=== PATIENT | male | born 1955 | race Caucasian/White ===

== ENCOUNTER 2024-07-27 09:16 | Outpatient (AMB) | payer MEDICARE, SELFPAY ==
--- NOTE | 2024-07-27 09:15 | A.OFFVIS_ITS ---
Vital Signs 07/27/24 09:19 Height 6 ft 2 in Weight 220 lb BMI 28.2 BP 130/78 Blood Pressure Location Rt brachial Position Sitting Pulse 73 Pulse Source Pulse Oximeter Pulse Oximetry (%) 96 Oxygen Delivery Method Room Air Intake Visit Reasons: ENP-Tardive Dyskinesia Intake Note: patient referred form [facility] for tardive dyskinesia Allergies No Known Allergies Allergy (Verified 07/27/24 09:19) HPI Comments Details: 68y/o Right handed male comes for further management of tardive dyskinesia.He started noticing perioral and tongue movements 2 years ago. He was tried on cogentin and ingrezza. 6 mths ago latuda dose was decreased but his mood worsened and his dose was increased again but he started noticing increased abnormal jaw clicking along with perioral dyskinesias. Now his latuda dose was decreased to 20 mg qd and started on clonazepam which seems to help but the jaw clicking still bothers him [facility] Medical History (Updated 07/27/24 @ 10:44 by Monica Zhu MD) Hyperlipidemia HTN (hypertension) Oromandibular dystonia Anal fissure Tardive dyskinesia Surgical History History of rectal surgery H/O hernia repair H/O rhinoplasty Family History Mother HTN (hypertension) Father Hyperglycemia Social History Alcohol intake: never Patient Tobacco Use Status: Never used Tobacco Physical Exam Vital Signs: Last Vital Signs Pulse 73 07/27/24 09:19 BP 130/78 07/27/24 09:19 Pulse Ox 96 07/27/24 09:19 Oxygen Delivery Method Room Air 07/27/24 09:19 BMI result Body Mass Index 28.2 Const General: cooperative, healthy appearing, comfortable and no acute distress Nutritional Appearance: average body habitus Orientation/consciousness: patient oriented x3 Limitations: no limitations Eyes Pupils: Equal, round and reactive pupils present Neuro Other: perioral , tongue movements and jaw dystonia General: patient oriented x3, gait normal, tone normal, moves all extremities and no focal motor deficits Cranial nerves: Yes Facial sensation intact/muscles of mastication intact, Yes Equal, round and reactive pupils present, Yes Bilaterally intact EOM present, Yes Nystagmus not present, Yes Normal facial strength present, Yes Midline tongue present, Yes Symmetric palate elevation present and Yes Ability to bilaterally elevate shoulders present Cognition (Neuro): normal cognition Gait exam (Neuro): Normal gait present Motor exam (neuro): 5/5 motor strength present throughout and Normal motor mu scle tone present throughout Deep tendon reflexes (DTR's): Right triceps reflex intensity grade: 1+, Left triceps reflex intensity grade: 1+, Rt Biceps (C5, C6): 1+, Left biceps reflex intensity grade: 1+, Right brachioradialis reflex intensity grade: 1+, Left brachioradialis reflex intensity grade: 1+, Right patellar reflex intensity grade: 1+ and Left patellar reflex intensity grade: 1+ Coordination: [id number] test normal Assessment & Plan Assessment & Plan (1) 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 Category: Medical Plan Suggested to increase clonazepam 0.5mg qhs I will trial him on Botox for Jaw dystonia continue ingrezza 80mg qd Coding Level of Care Code New Pt Level 4 (39276) Complex EM visit Add On G2211 Diagnoses Oromandibular dystonia G24.4 AIMS Questionnaire Abnormal Involuntary Movement Scale Muscles or Facial Expressions (movements of forehead, eyebrows, periorbital area, cheeks, including frowning, blinking, smiling, grimacing): 0 - None Lips and Perioral Area (puckering, pouting, smacking): 4 - Severe Jaw (biting, clenching, chewing, mouth opening, lateral movement): 4 - Severe Tongue (rate only increases in movement both in and out of mouth. NOT inability to sustain movement. Darting in and out of mouth): 2 - Mild Upper-arms, wrists, hands, fingers (Include choreic movements; rapid, objectively purposeless, irregular, spontaneous. Athetoid movements; slow, irregular, complex, serpentine. DO NOT INCLUDE TREMOR: 1 - Minimal, may be extreme normal Lower- legs, knees, ankles, toes (lateral knee movement, foot tapping, heel dropping, foot squirming, inversion and eversion of foot: 1 - Minimal, may be extreme normal Neck, shoulders, hips (rocking, twisting, squirming, pelvic gyrations: 0 - None Severity of abnormal movements overall: 3 - Moderate Incapacitation due to abnormal movements: 3 - Moderate Patient's awareness of abnormal movements: Aware, moderate distress Current problems with teeth and/or dentures?: No Are dentures usually worn?: No Edentia?: No AIMS Score: 21
[2024-07-27 09:19] VITALS: BP 130/78; PULSE 73; O2SAT 96; BMI 28.2
--- OUTSIDE RECORDS SUMMARY | 2024-07-27 10:16 | XMS_ITS ---
Author Organization [facility] Address [address] [place] [address] Care Team Providers Care Manager User Experience Name Role Phone NARAYAN MALONE Primary Care Provider [phone] Narayan Malone Unavailable [phone] Allergies Allergen (clinical drug ingredient) Drug/Non Drug Allergy documented on EMR Reaction Allergy Type Onset Date Status Weeds & Grass (uncoded) Unknown Allergy Active Reason For Referral Reason Dr Buck Singh He did in 2018 Due for colonoscopy now Diagnosis 1 Adenomatous polyp of colon, unspecified part of colon (D12.6) Referral Organization [facility] Referring Provider First Name NARAYAN Referring Provider Last Name JESSI Referring Provider Speciality Internal M edicine Referred Provider Specialty Gastroentero logy General Notes Rubi Steen 9:05:06 AM > Buck Tierney Referral Priority Routine REASON FOR VISIT Medicare Wellness Visit:, Last Labs: 10/17/22, Last EK02/05/22 (NEEDED), Last Colonoscopy: 03/31/18 (5 Year Repeat: Dr Tierney: Due This Year), Depression/Tobacco/Alcohol Screening Needed Medications Medication SIG (Take, Route, Frequency, Duration) Notes Start Date End Date Status PARoxetine HCl 40 MG 1 tablet in the morning Orally Once a day Not-Taking ALPRAZolam 0.5 MG 1 tablet Orally Twice a day for 30 12/17/2015 Not-Taking Pravastatin Sodium 40 MG 1 tablet Orally Once a day for 90 days Not-Taking Nystatin 297514 UNIT/GM External for 10 APPLY 2-3 TIMES DAILY TO AFFECTED AREAS 06/01/2014 Not-Taking Medrol 4 MG Oral for 21 USE DIRECTED. 12/25/2014 Not-Taking Hydrocortisone Acetate 30 MG Rectal for 28 _insert 1 SUPPOSITORY RECTALLY TWICE A DAY 05/29/2015 Not-Taking Nystatin [id number] UNIT/GM External for 10 APPLY 2-3 TIMES DAILY TO AFFECTED AREAS 06/01/2014 Not-Taking MiraLax 1 packet mixed with 8 ounces of fluid Orally Once a day Not-Taking Viagra 25 MG 1 tablet as needed Orally Once a day prn Not-Taking PARoxetine HCl 20 MG TAKE 1/2 A TABLET IN THE MORNING FOR 1 WEEK, THEN INCREASE TO 1/2 A TABLET TWICE A DAY for 30 Not-Taking Diclofenac Sodium 75 MG TAKE 1 TABLET BY MOUTH TWICE A DAY WITH FOOD OR MILK for 30 prn Not-Taking Wegovy 0.5 MG/0.5ML 0.5 ml Subcutaneous ONCE A WEEK FOR 4 WEEKS Not-Taking Viagra 25 MG Oral for 0 06/29/2014 Not-T aking Pravastatin Sodium 40 MG Oral for 30 TAKE 1 TABLET EVERY DAY 02/10/2011 Not-Taking Medrol 4 MG Oral for 21 USE DIRECTED. 12/25/2014 Not-Taking buPROPion HCl ER (SR) 200 MG TAKE 1 TABLET BY MOUTH EVERY MORNING Orally for 10 days Not-Taking Abilify 5 MG 1/2 tablet Orally Once a day started by psychiatry Not-Taking LORazepam 0.5 MG TAKE 1 TABLET BY MOUTH TWICE A DAY NEEDED ORALLY 30 DAYS Orally for 30 days 11/18/2022 Active Atorvastatin Calcium 20 MG TAKE 1 TABLET BY MOUTH EVERY DAY for 90 Active Venlafaxine HCl ER 150 MG 2 TABS Orally DAILY Active Multivitamin Adult Orally A ctive Latuda 80 MG 1 tablet in the evening with food Orally Once a day Active Benztropine Mesylate 1 MG 1 tablet Orally Once a day [facility] Active Social History Tobacco Use: Social History Observation Description Date Details (start date - stop date) Former Smoker 05/11/1971 - 05/11/2001 Tobacco Use/Smoking Question Answer Notes Are you a former smoker When did you start smoking? 05/11/1971 When did you stop smoking? 05/11/2001 How long has it been since you last smoked? > 10 years Additional Findings: Tobacco Non-User Current no n-smoker Alcohol Screen (Audit-C) Question Answer Notes Did you have a drink contain ing alcohol in the past year? Yes How often did you have a dri nk containing alcohol in the past year? Never (0 point) How many drinks did you have on a typical day when you were drinking in the past year? 1 or 2 drinks (0 point) How often did you have 6 or more drinks on one occasion in the past year? Never (0 point) Points 0 Interpretation Negative Tobacco use other than smoking: Question Answer Notes Are you an other tobacco user? No Section Notes: 46 years to Gabriella Meehan 65 yr. Stopped working in 2007 after partial colectomy.Spent time with grandchildren at [facility] in [place]. Rest of social situation is fine. 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 Has 2 brothers and 2 sisters. Patient is the oldest. All in good health. Talks and texts them Lives in [facility] One sister in [place] is homemaker. 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 Daughter Corrine is 43 yrs. RN at [employer] as asst nurse arts administrator or manager. Single mother with 2 children BF is Ed Young, together for 16 yrs Enjoys 2 grandchildren Connie 12 yr(shares his Bday with her) and Nicole 10 yrs over weekends.. Son Juan Carlos 45 yrs. 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 HOBBIES: Granddaughters Reads a lot . Puzzles To distract from work which is stressful Teaching himself woodworking Problems Problem Type SNOMED Code ICD Code Onset Dates Problem Status W/U Status Risk Notes Problem [id number] Medicare annual wellness visit, subsequent (Z00.00) Active confirmed 02/18/23 Reviewed MOLST Forms given last visit No changes Has HCP No changes Vital Signs Temperature 98.4 degrees Fahrenheit 02/19/20 23 Blood pressure systolic 128 mm Hg 02/19/20 23 Blood pressure diastolic 68 mm Hg 023 Heart Rate 80 /min 02/18/2023 Height 74 in 02/18/2023 Weight 202 lbs 02/18/2023 BMI 25.93 kg/m2 02/18/2023 Encounters Encounter Location Date Provider Diagnosis [facility] [address] [place] [address] 02/18/2023 NARAYAN MALONE Labile essential hypertension I10 ; Medicare annual wellness visit, subsequent Z00.00 ; Extrapyramidal and movement disorder, 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 ; Erectile disorder due to medical condition in male N52.1 ; Mixed hyperlipidemia E78.2 ; Sleep apnea, unspecified G47.30 ; Post traumatic stress disorder (PTSD) F43.10 ; Chronic recurrent major depressive disorder F33.9 and Adenomatous polyp of colon, unspecified part of colon D12.6 Assessments Encounter Date Diagnosis (ICD Code) Assessment Notes Treatment Notes Treatment Clinical Notes Section Notes 02/18/2023 Labile essential hypertension (ICD-10 - I10) 10/31/20 stable, slightly elevated , pt will lose weight and reevaulate in 3 months 02/18/2023 Medicare annual wellness visit, subsequent (ICD-10 - Z00.00) 02/18/23 Reviewed MOLST Forms given last visit No changes Has HCP No changes 02/18/2023 Extrapyramidal and movement disorder, unspecified (ICD-10 - G25.9) 06/09/22 Mouth movements Started 3 years ago Worse in past 3 months Told to discuss with his psychiatrist Dr Worley 02/18/2023 Erectile disorder due to medical condition in male (ICD-10 - N52.1) 02/03/22 I think this is due to his medications for depression / anxiety Not active for 2 years has lost weight and wants to be active Will give Tadanafil and send him for urologic consult 06/09/22 Saw [facility] She gave him compounded injection Tried once FU imn 10/13/22 Increased the dose to 40 units and it is effective Lasts 10 minutes. 02/18/2023 Mixed hyperlipidemia (ICD-10 - E78.2) Was on Pravastatin Changed to Crestor 20 mg as HDL was low and LDL 115 02/18/2023 Sleep apnea, unspecified (ICD-10 - G47.30) Using CPAP for 15 years Uses it daily 02/18/2023 Post traumatic stress disorder (PTSD) (ICD-10 - F43.10) Gets flash back memory from childhood and he remembered his father was drunk and violent and he called him an asshole. He burst out crying. 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 On Paxil for 4 years Gained weight and had decreased libido. Stopped for 4 months and restarted again when he had relapse. Gained 7 lbs weight since he restarted I switched it to Effexor on 02/08/20 when he had relapse Now doing well and stabilized. 05/22/20- continues medication, stable. continues to speak with Beba Akbar. Advised on exercise 07/23/20- continues to see Beba Akbar, was started on Abilify 2mg due to still having some depressive symptoms, only been 2 weeks, pt not seeing effect yet, was started low to make sure there were no side effects, will see MD again in 2 weeks. 05/24/21 Stopped the venlafaxine and abilify in March Has relapse of his symptoms Will restrt the Venlafaxine 150 mg today FU in a week 06/03/21 Feeling better for past 3 days But still restless Taking also wellbutrin . Was on abilify 5 mg given by Juan Carlos Downing for 2 yrs . 06/17/21 Restarted Abilfy 5 mg a week ago as he felt restless , agitated and depressed Will monitor for weight again and diabetes Already has tremors of both hands 09/04/21 Has an appt with psychiatry 09/16/21 Dr Meir linton 02/18/2023 Adenomatous polyp of colon, unspecified part of colon (ICD-10 - D12.6) 02/17/23 Had sessile tubular polyps [place] [address] Tierney Will need a 5 year repeat Plan Of Treatment Pending Test Test Name Order Date Urinalysis, Complete 02/18/2023 Lipid Panel 02/18/2023 Chem-Comprehensive 02/18/2023 CBC 02/18/2023 PSA, SCREEN 02/18/2023 Referrals Referral Date Details 02/18/2023 02/18/2023, Dr Buck Singh He did in 2018 Due for colonoscopy now Next Appt Details Follow Up: 4 Months, Reason: Progress Notes * Bob SALDANA BDOB: [birth year] (67 yo M)Acc No.[id number]:02/18/2023 Progress Note Patient:?Bob Saldana B Provider:?Narayan Malone MD :[id number]???Age:67 Y???Sex:Male Gus e:02/18/2023 Address:[address] [place] [address], [id number] Subjective: * Chief Complaints: * ???Medicare Wellness Visit:L ast Labs: 10/17/22Last EK02/05/22 (NEEDED)Last Colonoscopy: 03/31/18 (5 Year Repeat: Dr Tierney: Due This Year)Depression/Tobacco/Alcohol Screening Needed * HPI: ???Depression Screening:?PHQ-9?Little interest or pleasure in doing things?Not at all ?Feeling down, depressed, or hopeless?Not at all ?Trouble falling or staying asleep, or sleeping too much?Not at all ?Feeling tired or having little energy?Not at all ?Poor appetite or overeating?Not at all ?Feeling bad about yourself or that you are a failure, or have let yourself or your family down?Not at all ?Trouble concentrating on things, such as reading the newspaper or watching television?Not at all ?Moving or speaking so slowly that other people could have noticed; or the opposite, being so fidgety or restless that you have been moving around a lot more than usual?Not at all ?Thoughts that you would be better off or of hurting yourself in some way?Not at all ?Total Score?0 ???New/Follow-up Patient Consult:? 02/05/22 Here for his initial Medicare Wellness Visit Went over the questioneer Filled out MOLST FOms and discussed HCP. His Gabriella and his daughter are his health care proxy. ?Dr Worley stopped the abilify But after a month he had severe debiltating anxiety and restarted Abilfy 5 mg for a month Gained weight so Dr Worley stopped abilfy and started him on Latuda 20 mg daily on 11/17/21 Has had good result. Still has underlying anxiety but not debiltaing. Went camping with , daughter and g=her partner and2 frand daughters . Went [facility] at [facility], [facility]. Went sneaker mild hiking. Still does 10miles a week walking/hiking. ?Complaining of right ear soreness Hurts when it is windy 3 weeks ?Sildenafil 100mg is no longer effecive Has 20 mg script. Will give cialis 20 mg #90 [employer] . ?Driving to [place] in his 25 feet RV (will tow it with his Jeep Grand Nettie) with his and 2 dogs Will camp for 2 weeks at [facility]. Will keep the RV theere ($100 a month) and will drive home Then go back in May for a month. I told him he should join [facility] and look on internet for [place] hiking and walking groups as he needs to socialize as he is isolated after his long term. ?06/09/22 Came to office. States his mentall health is good on Latuda 80 and Effexor 300 mg . He s constantly moving his lips andpuffing and feels tired Started 3 years ago and now his cheeks gets tired . 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 . Also the sin did not work Saw Urologist in [facility] and she gave hin penile inject trimix (compounded) Tried $150 out of pocket. Tried once Was slightly effective. Joined [employer], Does treadmill and rowing machine and cybex machine Goes with and does Mon to Fri at 11 am. Likes it. Took a seasonal job at [employer] for 3 months To socialize. Has booked 6 camping site for his RV travel this year Wenr 6 times last year and dogs enjoy it. ?10/13/22 Looking well Seems to have lost a lot of weight. Lost 58 lbs over a year Weighs 216 lbs with clothes on today Goal is 205 lbs Attributes to 1800 calories a day and an hour of rowing machine daily at the gym. Did go to [place] twice Invited to play at [employer] Has lunch with a 94 lady he met at [employer]. ?Saw Dr Worley . He gave him Benztripine 1 mg and it is helping a lot with his lip smacking and cheek puffing. David happy as I suggested it to him to be treated. Going to [place] for Camping in November twice ,[place] in 2 weeks , [place] in December and [place] in the [facility] with his daughter and her fiance and 2 grand daughters visit for a few days , [place] on the grill , Planning to go to [place] in [place] for 2 months Taking his Camper in February and Park it there for winter $100 a month. ?Gets together at sisters kenvir in [facility] and his 2 brothers and sister from [place] and their children all get together and meet at her house. 30-40 people. ?02/18/23 MEDICARE WELLNESS VISIT: ?Seen in office Moving his mouth constantly. (Tardive Dyskinesia) Worse in morning. Sees Dr Worley every 3 months and now 6 months. No change in meds. On Benzotropine from him. On Latuda and Venlafaxine, Atorvastatin and Benzotropine . No new labs. Lost more weight. Weighs 202 lbs Goal is 194 lbs. ?Went camping 7 times this year, a week each. Going with [place] in February with Will leave his camper there and come back after two weeks and go back in May and stay for 2 months. Stress has been better Doing a lot of fishing at [place] and hiking at [employer] alone. Had colon polyps at last colonocopy. * ROS:?General/Constitutional:?Denies?Change in appetite.?Denies?Chills.?Denies?Fatigue.?Denies?Fever.?Denies?Headache.?Denies?L ightheadedness.?Admits?Sleep disturbance.?Denies?Weight gain.?Denies?Weight loss.?Respiratory:?Denies?Asthma,?denies, denies.?Denies?Breathing pattern.?Denies?Breathing problems,?denies, denies.?Denies?Chest pain.?Denies?Cough.?Denies?Hemoptysis.?Denies?Pain with inspiration.?Denies?Pneumonia,?denies, denies.?Denies?Shortness of breath,?denies, denies.?Denies?Shortness of breath at rest.?Denies?Shortness of breath with exertion.?Denies?Sputum production.?Denies?Tuberculosis,?denies, denies.?Denies?Wheezing.?Cardiovascular:?Denies?Chest pain.?Denies?Chest pain at rest.?Denies?Chest pain with exertion.?Denies?Claudication.?Denies?Cyanosis.?Denies?Difficulty laying flat.?Denies?Dizziness.?Denies?Dyspnea on exertion.?Denies?Fluid accumulation in the legs.?Denies?Heart murmur,?denies, denies.?Denies?Heart problems,?denies, denies.?Denies?High blood pressure,?denies, denies.?Denies?Irregular heartbeat,?denies, denies.?Denies?Orthopnea.?Denies?Palpitations,?denies, denies.?Denies?Rheumatic fever,?denies, denies.?Denies?Shortness of breath.?Denies?Weakness.?Denies?Weight gain.?Psychiatric:?Admits?Anxiety.?Denies?Auditory/visual hallucinations.?Denies?Delusions.?Admits?Depressed mood.?Admits?Difficulty sleeping.?Denies?Eating disorder.?Loss of appetite?Admits.?Denies?Mental or Physical abuse.?Denies?Nervous breakdown,?denies.?Admits?Psychiatric condition,?denies.?Denies?Stressors.?Denies?Substance abuse.?Denies?Suicidal thoughts.? * Medical History:? * Surgical History:?Shoulder S urgery Right Impingement syndrome Dr Begum 2005Tonsillectomy [facility] Age 7Deviated Nasal Septum Dr Leonila Alves(with Dr Villalpando) 2014Left foot surgery 1998Anal fissure repair Dr Avila 2015 * Hospitalization/Major Diagno stic Procedure:? * Family History:?FamilyHx: Ino dai history of cancer;Father At Age ____;Family history of chronic obstructive pulmonary disease;.? 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 Mother Vinita Both remarried at age 74 yr from CHF Smoker and drinker. Has 2 brothers and 2 sisters. Keeps in touch 3 live in [facility] and one in [place].Meets couple of times once in summer and ashley(takes turns) Dysfunctional childhood. * Social History:?Tobacco Use:?Tobacco Use/Smoking?Are you a?former smoker ?When did you start smoking??05/11/1971 ?When did you stop smoking??05/11/2001 ?How long has it been since you last smoked??> 10 years ?Additional Findings: Tobacco Non-User?Current non-smoker ?Tobacco use other than smoking?Are you an other tobacco user??No ???Social_Migrated:?SocialHx: Former smokerMarital History - Currently . ???Drugs/Alcohol:?Alcohol Screen (Audit-C)?Did you have a drink containing alcohol in the past year??Yes ?How often did you have a drink containing alcohol in the past year??Never (0 point) ?How many drinks did you have on a typical day when you were drinking in the past year??1 or 2 drinks (0 point) ?How often did you have 6 or more drinks on one occasion in the past year??Never (0 point) ?Points?0 ?Interpretation?Negative ?Do you smoke marijuana?: Admits. ?Do you drink alcohol?: none. ??? 46 years to Gabriella Meehan 65 yr. Stopped working in 2007 after partial colectomy.Spent time with grandchildren at [facility] in [place] and [place]. Rest of social situation is fine. 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 Has 2 brothers and 2 sisters. Patient is the oldest. All in good health. Talks and texts them Lives in [facility] One sister in [place] is homemaker. 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 Daughter Corrine is 43 yrs. RN at [employer] as asst nurse arts administrator or manager. Single mother with 2 children BF is Ed Young, together for 16 yrs Enjoys 2 grandchildren Connie 12 yr(shares his Bday with her) and Nicole 10 yrs over weekends.. Son Juan Carlos 45 yrs. 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 HOBBIES: Granddaughters Reads a lot . Puzzles To distract from work which is stressful Teaching himself woodworking. * Medications:?TakingBenztropi ne Mesylate 1 MG Tablet 1 tablet Orally Once a day, Notes: QHSLatuda 80 MG Tablet 1 tablet in the evening with food Orally Once a dayMultivitamin Adult Tablet Orally Venlafaxine HCl ER 150 MG Capsule Extended Release 24 Hour 2 TABS Orally DAILYAtorvastatin Calcium 20 MG Tablet TAKE 1 TABLET BY MOUTH EVERY DAY LORazepam 0.5 MG Tablet TAKE 1 TABLET BY MOUTH TWICE A DAY NEEDED ORALLY 30 DAYS Orally Taking Benztropine Mesylate 1 MG Tablet 1 tablet Orally Once a day, Notes: QHSTaking Latuda 80 MG Tablet 1 tablet in the evening with food Orally Once a dayTaking Multivitamin Adult Tablet Orally Taking Venlafaxine HCl ER 150 MG Capsule Extended Release 24 Hour 2 TABS Orally DAILYTaking Atorvastatin Calcium 20 MG Tablet TAKE 1 TABLET BY MOUTH EVERY DAY Taking LORazepam 0.5 MG Tablet TAKE 1 TABLET BY MOUTH TWICE A DAY NEEDED ORALLY 30 DAYS Orally Not-TakingAbilify 5 MG Tablet 1/2 tablet Orally Once a day, Notes: started by psychiatrybuPROPion HCl ER (SR) 200 MG Tablet Extended Release 12 Hour TAKE 1 TABLET BY MOUTH EVERY MORNING Orally Wegovy 0.5 MG/0.5ML Solution Auto-injector 0.5 ml Subcutaneous ONCE A WEEK FOR 4 WEEKSDiclofenac Sodium 75 MG Tablet Delayed Release TAKE 1 TABLET BY MOUTH TWICE A DAY WITH FOOD OR MILK , Notes: prnMedrol 4 MG TABS Oral , Notes: USE DIRECTED.Pravastatin Sodium 40 MG TABS Oral , Notes: TAKE 1 TABLET EVERY DAYViagra 25 MG TABS Oral PARoxetine HCl 20 MG Tablet TAKE 1/2 A TABLET IN THE MORNING FOR 1 WEEK, THEN INCREASE TO 1/2 A TABLET TWICE A DAY Viagra 25 MG Tablet 1 tablet as needed Orally Once a day prnMiraLax Packet 1 packet mixed with 8 ounces of fluid Orally Once a dayNystatin [id number] UNIT/GM OINT External , Notes: APPLY 2-3 TIMES DAILY TO AFFECTED AREASHydrocortisone Acetate 30 MG SUPP Rectal , Notes: _insert 1 SUPPOSITORY RECTALLY TWICE A DAYALPRAZolam 0.5 MG Tablet 1 tablet Orally Twice a dayPARoxetine HCl 40 MG Tablet 1 tablet in the morning Orally Once a dayMedrol 4 MG TABS Oral , Notes: USE DIRECTED.Nystatin [id number] UNIT/GM OINT External , Notes: APPLY 2-3 TIMES DAILY TO AFFECTED AREASPravastatin Sodium 40 MG Tablet 1 tablet Orally Once a dayMedication List reviewed and reconciled with the patientNot-Taking Abilify 5 MG Tablet 1/2 tablet Orally Once a day, Notes: started by psychiatryNot-Taking buPROPion HCl ER (SR) 200 MG Tablet Extended Release 12 Hour TAKE 1 TABLET BY MOUTH EVERY MORNING Orally Not-Taking Wegovy 0.5 MG/0.5ML Solution Auto-injector 0.5 ml Subcutaneous ONCE A WEEK FOR 4 WEEKSNot-Taking Diclofenac Sodium 75 MG Tablet Delayed Release TAKE 1 TABLET BY MOUTH TWICE A DAY WITH FOOD OR MILK , Notes: prnNot-Taking Medrol 4 MG TABS Oral , Notes: USE DIRECTED.Not-Taking Pravastatin Sodium 40 MG TABS Oral , Notes: TAKE 1 TABLET EVERY DAYNot-Taking Viagra 25 MG TABS Oral Not-Taking PARoxetine HCl 20 MG Tablet TAKE 1/2 A TABLET IN THE MORNING FOR 1 WEEK, THEN INCREASE TO 1/2 A TABLET TWICE A DAY Not-Taking Viagra 25 MG Tablet 1 tablet as needed Orally Once a day prnNot-Taking MiraLax Packet 1 packet mixed with 8 ounces of fluid Orally Once a dayNot-Taking Nystatin [id number] UNIT/GM OINT External , Notes: APPLY 2-3 TIMES DAILY TO AFFECTED AREASNot-Taking Hydrocortisone Acetate 30 MG SUPP Rectal , Notes: _insert 1 SUPPOSITORY RECTALLY TWICE A DAYNot-Taking ALPRAZolam 0.5 MG Tablet 1 tablet Orally Twice a dayNot-Taking PARoxetine HCl 40 MG Tablet 1 tablet in the morning Orally Once a dayNot-Taking Medrol 4 MG TABS Oral , Notes: USE DIRECTED.Not-Taking Nystatin [id number] UNIT/GM OINT External , Notes: APPLY 2-3 TIMES DAILY TO AFFECTED AREASNot-Taking Pravastatin Sodium 40 MG Tablet 1 tablet Orally Once a dayMedication List reviewed and reconciled with the patient * Allergies:?Weeds & Grass: Jeremy naylor[Allergies Verified] Objective: * Vitals:?Temp: 98.4 F, HR: 80 /min, BP: 128/68 mm Hg, Wt: 202 lbs, BMI:25.93 Index, Ht: 74 in, Wt-k.63 kg. * ???Past Orders: Lab:CBC * Order Date 10/13/2022 07/04/2021 01/31/2021 HEMATOCRIT 42.7 (Ref Range: 42-54 %) 43.6 (Ref Range: 42-54 %) 44.2 (Ref Range: 42-54 %) HEMOGLOBIN 13.5 (Ref Range: 13.5-17.5 g/dL) 14.3 (Ref Range: 13.5-17.5 g/dL) 14.8 (Ref Range: 13.5-17.5 g/dL) MCH 28.8 (Ref Range: 27-32 pg) 28.8 (Ref Range: 27-32 pg) 30.3 (Ref Range: 27-32 pg) MCHC 31.6?L (Ref Range: 32-37 g/dL) 32.8 (Ref Range: 32-37 g/dL) 33.5 (Ref Range: 32-37 g/dL) MCV 91.0 (Ref Range: 79-98 fL) 87.9 (Ref Range: 79-98 fL) 90.6 (Ref Range: 79-98 fL) MEAN PLATELET VOLUME 10.0 (Ref Range: 7-11 fL) 9.7 (Ref Range: 7-11 fL) 9.1 (Ref Range: 7-11 fL) NRBC # AUTO DIFF 0.00 (Ref Range: <0.1 x10-3/uL) 0.00 (Ref Range: <0.1 x10-3/uL) 0.00 (Ref Range: <0.1 x10-3/uL) NRBC % AUTO DIFF 0.0 (Ref Range: <1 %) 0.0 (Ref Range: <1 %) 0.0 (Ref Range: <1 %) PLT COUNT 302 (Ref Range: 130-400 x10-3/uL) 315 (Ref Range: 130-400 x10-3/uL) 310 (Ref Range: 130-400 x10-3/uL) RBC 4.7 (Ref Range: 4.5-5.5 x10-6/uL) 5.0 (Ref Range: 4.5-5.5 x10-6/uL) 4.9 (Ref Range: 4.5-5.5 x10-6/uL) RDW 12.8 (Ref Range: 11-15 %) 12.9 (Ref Range: 11-15 %) 13.0 (Ref Range: 11-15 %) WBC 5.2 (Ref Range: 4.8-10.8 x10-3/uL) 5.9 (Ref Range: 4.8-10.8 x10-3/uL) 7.8 (Ref Range: 4.8-10.8 x10-3/uL) * Lab:COMPREHENSIVE METABOLIC PANEL * Order Date 10/17/2022 02/05/2022 07/04/2021 ALBUMIN 4.0 (Ref Range: 3.2-5.0 G/dL) 4.0 (Ref Range: 3.2-5.0 G/dL) 4.0 (Ref Range: 3.2-5.0 G/dL) ALK PHOS 74 (Ref Range: 42-121 U/L) 76 (Ref Range: 42-121 U/L) 88 (Ref Range: 42-121 U/L) SGPT 36 (Ref Range: 10-60 U/L) 40 (Ref Range: 10-60 U/L) 31 (Ref Range: 10-60 U/L) ANION GAP 8 (Ref Range: 3-11) 7 (Ref Range: 3-11) 5 (Ref Range: 3-11) SGOT 27 (Ref Range: 10-42 U/L) 32 (Ref Range: 10-42 U/L) 26 (Ref Range: 10-42 U/L) BILI,TOTAL 0.6 (Ref Range: 0.0-1.4 mg/dL) 0.8 (Ref Range: 0.0-1.4 mg/dL) 0.6 (Ref Range: 0.0-1.4 mg/dL) BUN 12 (Ref Range: 5-25 mg/dL) 12 (Ref Range: 5-25 mg/dL) 11 (Ref Range: 5-25 mg/dL) CALCIUM 9.4 (Ref Range: 8.5-10.5 mg/dL) 9.7 (Ref Range: 8.5-10.5 mg/dL) 9.6 (Ref Range: 8.5-10.5 mg/dL) CHLORIDE 105 (Ref Range: 96-110 mmol/L) 106 (Ref Range: 96-110 mmol/L) 104 (Ref Range: 96-110 mmol/L) CO2 28 (Ref Range: 21-32 mmol/L) 30 (Ref Range: 21-32 mmol/L) 29 (Ref Range: 21-32 mmol/L) CREAT 1.02 (Ref Range: 0.7-1.3 mg/dL) 1.00 (Ref Range: 0.7-1.3 mg/dL) 1.07 (Ref Range: 0.7-1.3 mg/dL) GLOMERULAR FILTRATION RATE 82 (Ref Range: >60) > 60 > 60 GLUCOSE 93 (Ref Range: 70-100 mg/dL) 78 (Ref Range: 70-100 mg/dL) 79 (Ref Range: 70-100 mg/dL) POTASSIUM 4.3 (Ref Range: 3.5-5.5 mmol/L) 4.1 (Ref Range: 3.5-5.5 mmol/L) 4.7 (Ref Range: 3.5-5.5 mmol/L) SODIUM 141 (Ref Range: 135-145 mEq/L) 143 (Ref Range: 135-145 mEq/L) 138 (Ref Range: 135-145 mEq/L) TOTAL PROTEIN 7.1 (Ref Range: 6.0-8.0 G/dL) 7.1 (Ref Range: 6.0-8.0 G/dL) 7.3 (Ref Range: 6.0-8.0 G/dL) * Lab:LIPID PROFILE * Order Date 10/17/2022 02/05/2022 01/31/2021 CHOLESTEROL 125 (Ref Range: 0-200 mg/dL) 132 (Ref Range: 0-200 mg/dL) 187 (Ref Range: 0-200 mg/dL) HDL CHOLESTEROL 46 (Ref Range: >40 mg/dL) 42 (Ref Range: >40 mg/dL) 38?L (Ref Range: >40 mg/dL) LDL CALCULATED 67 (Ref Range: 0-100 mg/dL) 66 (Ref Range: 0-100 mg/dL) 73 (Ref Range: 0-100 mg/dL) TC-HDLC RATIO 2.7 (Ref Range: 0-4.4 mg/dL) 3.1 (Ref Range: 0-4.4 mg/dL) 4.9?H (Ref Range: 0-4.4 mg/dL) TRIGLYCERIDES 64 (Ref Range: 0-150 mg/dL) 122 (Ref Range: 0-150 mg/dL) 383?H (Ref Range: 0-150 mg/dL) * Lab:URINALYSIS * Order Date 10/17/2022 02/05/2022 03/12/2020 BILIRUBIN, URINE NEGATIVE (Ref Range: NEGATIVE) NEGATIVE (Ref Range: NEGATIVE) NEGATIVE (Ref Range: NEGATIVE) BLOOD, URINE NEGATIVE (Ref Range: NEGATIVE) NEGATIVE (Ref Range: NEGATIVE) NEGATIVE (Ref Range: NEGATIVE) GLUCOSE, (UA) NEGATIVE (Ref Range: NEGATIVE mg/dL) NEGATIVE (Ref Range: NEGATIVE mg/dL) NEGATIVE (Ref Range: NEGATIVE mg/dL) KETONE, URINE NEGATIVE (Ref Range: NEGATIVE mg/dL) NEGATIVE (Ref Range: NEGATIVE mg/dL) NEGATIVE (Ref Range: NEGATIVE mg/dL) LEUKOCYTE ESTERASE, URINE NEGATIVE (Ref Range: NEGATIVE) NEGATIVE (Ref Range: NEGATIVE) NEGATIVE (Ref Range: NEGATIVE) NITRITE, URINE NEGATIVE (Ref Range: NEGATIVE) NEGATIVE (Ref Range: NEGATIVE) NEGATIVE (Ref Range: NEGATIVE) PH, URINE 7.5 (Ref Range: 5.0-8.0) 5.5 (Ref Range: 5.0-8.0) 7.0 (Ref Range: 5.0-8.0) PROTEIN, URINE NEGATIVE (Ref Range: <= TRACE mg/dl) NEGATIVE (Ref Range: <= TRACE mg/dl) NEGATIVE (Ref Range: <= TRACE mg/dl) SPECIFIC GRAVITY, URINE 1.004 (Ref Range: 1.003-1.030) 1.017 (Ref Range: 1.003-1.030) 1.012 (Ref Range: 1.003-1.030) UROBILINOGEN, URINE 0.2 (Ref Range: 0.2-1.0 E.U./dL) 0.2 (Ref Range: 0.2-1.0 E.U./dL) 0.2 (Ref Range: 0.2-1.0 E.U./dL) * Examination: ???General Examination: ?GENERAL APPEARANCE:?Walking slow Looking apprehensive and agitated. Dress look dishevelled and unkempt. Sad expression.?HEAD:?normocephalic, atraumatic.?EYES:?pupils equal, round, reactive to light and accommodation.?EARS:?normal.?ORAL CAVITY:?mucosa moist.?THROAT:?clear.?NECK/THYROID:?neck supple, full range of motion, no cervical lymphadenopathy.?SKIN:?no suspicious lesions, warm and dry.?HEART:?no murmurs, regular rate and rhythm, S1, S2 normal.?LUNGS:?clear to auscultation bilaterally.?ABDOMEN:?normal, bowel sounds present, soft, nontender, nondistended.?EXTREMITIES:?no clubbing, cyanosis, or edema.?NEUROLOGIC:?nonfocal, motor strength normal upper and lower extremities, sensory exam intact.? 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, 06/09/22 Mouth movements Started 3 years ago Worse in past 3 months Told to discuss with his psychiatrist Dr Worley?4.?Erectile disorder due to medical condition in male - N52.1, 02/03/22 I think this is due to his medications for depression / anxiety Not active for 2 years has lost weight and wants to be active Will give Tadanafil and send him for urologic consult 06/09/22 Saw [facility] She gave him compounded injection Tried once FU imn 10/13/22 Increased the dose to 40 units and it is effective Lasts 10 minutes.?5.?Mixed hyperlipidemia - E78.2, Was on Pravastatin Changed to Crestor 20 mg as HDL was low and LDL 115?6.?Sleep apnea, unspecified - G47.30, Using CPAP for 15 years Uses it daily?7.?Post traumatic stress disorder (PTSD) - F43.10, Gets flash back memory from childhood and he remembered his father was drunk and violent and he called him an asshole. He burst out crying. 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 On Paxil for 4 years Gained weight and had decreased libido. Stopped for 4 months and restarted again when he had relapse. Gained 7 lbs weight since he restarted I switched it to Effexor on 02/08/20 when he had relapse Now doing well and stabilized. 05/22/20- continues medication, stable. continues to speak with Beba Akbar. Advised on exercise07/23/20- continues to see Beba Akbar, was started on Abilify 2mg due to still having some depressive symptoms, only been 2 weeks, pt not seeing effect yet, was started low to make sure there were no side effects, will see MD again in 2 weeks. 05/24/21 Stopped the venlafaxine and abilify in March Has relapse of his symptoms Will restrt the Venlafaxine 150 mg today FU in a week 06/03/21 Feeling better for past 3 days But still restless Taking also wellbutrin . Was on abilify 5 mg given by Juan Carlos Downing for 2 yrs . 06/17/21 Restarted Abilfy 5 mg a week ago as he felt restless , agitated and depressed Will monitor for weight again and diabetes Already has tremors of both hands09/04/21 Has an appt with psychiatry 09/16/21 Dr Worley [place]?9.?Adenomatous polyp of colon, unspecified part of colon - D12.6, 02/17/23 Had sessile tubular polyps [place] [address] Tierney Will need a 5 year repeat? Plan: * Treatment: 2.?Labile essential hyperten igor?LAB: Urinalysis, Complete ?LAB: Lipid Panel ?LAB: Chem-Comprehensive ?LAB: CBC 3.?Adenomatous polyp of colo n, unspecified part of colon? Referral To:Gastroenterology ?Reason:Dr Buck Singh He did in 2018 Due for colonoscopy now * Procedure Codes:? * Follow Up:?4 Months * Billing Information: * Visit Code:? G0439 Annual Wellness Visit AWV. 46909 [facility] Subsequent. G0444 Add-on AWV w/ Depression. Modifiers: 59 * Procedure Codes:? Care Plan Details* * Sign off status: Completed true * Provider:?Narayan Malone MD Date:?2022 Generated for Bird tracey/Armani/eTransmitting on:?07/27/2024 10:15 AM EDT History and Physical Notes * HPI (History of Present Illness) Category Sub-Category Detail Notes Category Not es Depression Screening PHQ-9 Little inte rest or pleasure in doing things: Not at all Feeling down, depressed, or hopeless: No t at all Trouble falling or staying asleep, or sl eeping too much: Not at all Feeling tired or having little energy: N ot at all Poor appetite or overeating: Not at all Feeling bad about yourself o r that you are a failure, or have let yourself or your family down: Not at all Trouble concentrating on thi ngs, such as reading the newspaper or watching television: Not at all Moving or speaking so slowly that other people could have noticed; or the opposite, being so fidgety or restless that you have been moving around a lot more than usual: Not at all Thoughts that you would be b kareen off or of hurting yourself in some way: Not at all Total Score: 0 Examination Category Sub-Category Detail Notes Category Not es General Examination GENERAL APPEARANCE: Walking slow Looking apprehensive and agitated. Dress look dishevelled and unkempt. Sad expression HEAD: normocephalic, atrau matic EYES: pupils equal, round, reactive to light and accommodation EARS: normal THROAT: clear NECK/THYROID: neck supple, full ra nge of motion, no cervical lymphadenopathy HEART: no murmurs, regular rate and rhythm, S1, S2 normal LUNGS: clear to auscultatio n bilaterally ABDOMEN: normal, bowel sounds present, soft, nontender, nondistended NEUROLOGIC: nonfocal, motor stre ngth normal upper and lower extremities, sensory exam intact SKIN: no suspicious lesion s, warm and dry EXTREMITIES: no clubbing, cyanosi s, or edema ORAL CAVITY: mucosa moist Consultation Request Notes Referral Date Referring Provider Referred Provider Not es 02/18/[address] Barry Slit zki He did in 2018 Due for colonoscopy now
--- OUTSIDE RECORDS SUMMARY | 2024-07-27 10:16 | XMS_ITS | Data Portability ---
Author Organization [place] - [facility], Allergy Address [address] [place] [address] Care Team Providers Care Family Law Attorney Name Role Phone JESSIDAO Primary Care Provider [phone] Assessment Encounter Date Assessment Date Assessment LastModified by Organization Details LastModified Time 06/28/2024 06/28/2024 68 year old male presents reporting left ear pressure having had many courses of antibiotics for left ear infection in the past two months. TMs intact and middle ear spaces appear well aerated without effusion. Type C tympanometry bilaterally. Audiometric testing is stable showing mild sensorineural hearing loss on the right through 6 kHz sloping to moderately severe. On the left hearing is within normal limits through 6 kHz sloping to moderate sensorineural hearing loss. Excellent word recognition bilaterally. Reassurance provided that there is no fluid or sign of infection. Recommend continued use of Flonase and discussed that pressure will likely normalize in time. Follow up in 3 months with repeat tympanometry at that visit. If his symptoms persist he may benefit from CT sinus. [email or web address] Not available 06/28/2024 18:32:01 Plan of Treatment Reminders Order Date Submit Date Provider Last Modified By Organization Details Last Modified Time Details Appointments Hearing Test 2024 03:00P M Hearing Test Not available Not available Not available Establish ed 15 2024 03:30P M MARC LIMA PA-C Not available Not available Not available Lab None recorded. Referral None recorded. Procedures None recorded. Surgeries None recorded. Imaging None recorded. Medication Orders None recorded. Patient TargetsNo targets recorded. Patient InstructionsNo instructions recorded. Reason for Referral None Reported. Results Created Date Observation Date Name Description Value Unit Range Abnormal Flag Note LastModifiedBy Organization Detail LastModifiedTime 06/29/19 25 audio gram No observ ation record ed. BARCODE Not Available 2024 09:48:10 Result Notes None recorded. Problems Name Problem SNOMED Code Status Onset Date Resolution Date Notes Provider Name and Address Organization Details Recorded Time Infectiv e otitis externa 33545919 Completed 201312/11/2023 Otitis externa; infectiv e; CMS Risk: low risk CMS Treatmen t: establis hed problem (to examiner ): stable or improved Note: Date Diagnose d: 4 3:20 PM (380.10) Otitis externa; infectiv e; CMS Risk: low risk CMS Treatmen t: establis hed problem (to examiner ): stable or improved Note: Date Diagnose d: 4 3:23 PM (380.10) Not Available [facility] 4 02:14:05 Other nasal cavity and sinus disease Active 2013 Other diseases of upper respirat ory tract: Other disease of nasal cavity and sinuses; CMS Risk: low risk CMS Treatmen t: establis hed problem (to examiner ): stable or improved Note: Date Diagnose d: 4 9:45 AM (478.19) Not Available [facility] 4 02:13:41 Hypertro phy of nasal turbinat es 39402617 Active 2013 Nasal turbinat e hypertro phy; CMS Risk: low risk CMS Treatmen t: establis hed problem (to examiner ): stable or improved Note: Date Diagnose d: 4 9:45 AM (478.0) Not Available [facility] 4 02:16:18 Chronic rhinitis 47467252 Active 2020 Chronic rhinitis ; Note: Date Diagnose d: 1 1:16 PM (J31.0) Not Available [facility] 4 02:14:14 Bilatera l disorder of Eustachi an tubes 19541490820 45690 Active 2022 Other specifie d disorder s of Eustachi an tube, bilatera l; Note: Date Diagnose d: 02/19/20 23 2:06 PM (H69.83) Not Available [facility] 4 02:13:42 Obstruct alvarado sleep apnea syndrome 84536858 Active 2020 Obstruct alvarado sleep apnea (adult) (pediatr ic); Note: Date Diagnose d: 1 1:16 PM (G47.33) Not [facility] 4 02:15:32 Acute suppurat alvarado otitis media without spontane ous rupture of ear drum 91040423 Active 2022 Acute suppurat alvarado otitis media without spontane ous rupture of ear drum, bilatera l; Note: Date Diagnose d: 3 4:39 PM (H66.003 ) Not Available [facility] 4 02:16:18 Bilatera l external auditory canal chronic otitis externa 01743932811 Active 2020 Unspecif ied chronic otitis externa, bilatera l; Note: Date Diagnose d: 1 1:16 PM (H60.63) Not Available [facility] 4 02:14:14 Acute serous otitis media of bilatera l ears 41980199425 93284 Active 2022 Acute serous otitis media, bilatera l; Note: Date Diagnose d: 3 2:03 PM (H65.03) Not Available [facility] 4 02:14:10 Postoper ative follow-u p visit Active 2013 Post op; CMS Risk: low risk CMS Treatmen t: establis hed problem (to examiner ): stable or improved Note: Date Diagnose d: 4 9:45 AM (V67.00) Post op; CMS Risk: low risk CMS Treatmen t: establis hed problem (to examiner ): stable or improved Note: Date Diagnose d: 5 10:16 AM (V67.00) Not Available [facility] 4 02:13:56 Allergic rhinitis 62488055 Active 2020 Other allergic rhinitis ; Note: Date Diagnose d: 1 10:31 AM (J30.89) Not Available [facility] 4 02:13:18 Deviated nasal septum 081507725 Active 2013 Deviated nasal septum; CMS Risk: low risk CMS Treatmen t: establis hed problem (to examiner ): stable or improved Note: Date Diagnose d: 4 9:45 AM (470) Not Available [facility] 4 02:12:47 Abnormal auditory percepti on 50686452 Active 2022 Other abnormal auditory percepti ons, bilatera l; Note: Date Diagnose d: 02/19/20 23 2:06 PM (H93.293 ) Not Available [facility] 4 02:15:59 Impacted cerumen of bilatera l ears 65974027694 13434 Active 2022 Impacted cerumen, bilatera l; Note: Date Diagnose d: 3 11:48 AM (H61.23) Not Available [facility] 4 02:14:05 Impacted cerumen 45348602 Completed 201412/11/2023 Impacted cerumen; CMS Risk: low risk CMS Treatmen t: new problem (to examiner ): no addition al workup planned Impacte d cerumen; CMS Risk: low risk CMS Treatmen t: new problem (to examiner ): no addition al workup planned Note: Date Diagnose d: 4 3:20 PM (380.4) Impact ed cerumen; CMS Risk: low risk CMS Treatmen t: establis hed problem (to examiner ): stable or improved ; Start Date : 02/14/20 14 Impac colton cerumen; CMS Risk: low risk CMS Treatmen t: establis hed problem (to examiner ): stable or improved Note: Date Diagnose d: 4 3:20 PM (380.4) ; Start Date : 02/14/20 14 Not Available [facility] 4 02:13:35 Sensorin eural hearing loss of bilatera l ears 909736592 Active 2024 Isabelle barrios MA - [facility] 5 15:55:58 Problem Notes None recorded. Procedures Surgical History Date Name Laterality Status Provider Name and Address Organization Details Recorded Time 06/28/2024 Air & Speech Audio with Tymps (09879, 91954 & 32495) completed Isabelle Babb MA - [facility] 06/28/2024 15:55:53 Imaging Results Imaging Date Name Status [facility] by [facility] Details LastModified Time 06/29/2024 audiogram completed BARCODE Information no t available 06/29/2024 09:48:10 Procedure Notes None recorded. Medical Equipment None Reported. Allergies No known drug allergies Medications Name Sig Start Date Stop Date Status Note LastModified by Organization Details LastModified Time Prescript ion - New 06/28 completed Rx^Rx_20 [id number] Not Available Not Available Not Available doxycycli ne hyclate 100 mg capsule TAKE 1 CAPSULE BY MOUTH TWICE A DAY FOR 10 DAYS 06/28 completed Not Available Not Available Not Available atorvasta tin 20 mg tablet TAKE 1 TABLET BY MOUTH EVERY DAY active Not Available Not Available No t Available cetirizin e 10 mg tablet TAKE 1 TABLET BY MOUTH EVERY DAY active Not Available Not Available No t Available prednison e 20 mg tablet TAKE 2 TABLETS BY MOUTH DAILY FOR 5 DAYS 06/28 completed Not Available Not Available Not Available clonazepa m 0.5 mg tablet TAKE 1 TABLET BY MOUTH 2 TIMES PER DAY NEEDED ONLY active Not Available Not Available No t Available venlafaxi ne ER 150 mg capsule,e xtended release 24 hr TAKE 2 CAPSULES (300 MG) BY MOUTH DAILY AFTER BREAKFAS T active Not Available Not Available No t Available baclofen 20 mg tablet TAKE 1 TABLET BY MOUTH THREE TIMES A DAY active Not Available Not Available No t Available pravastat in 10 mg tablet 10/22 completed Medicati on ID: [id number] Bra nd Name: pravasta tin Send Method: E-Prescr ibed Sub s Allowed: subs OK Medic ationGen ericName : pravasta tin Not Available Not Available Not Available baclofen 10 mg tablet TAKE 1 TABLET BY MOUTH TWICE A DAY 06/28 completed Not Available Not Available Not Available amlodipin e 10 mg tablet TAKE 1 TABLET BY MOUTH EVERY DAY active Not Available Not Available No t Available Xanax 0.25 mg tablet 10/22 completed Medicati on ID: [id number] Bra nd Name: Xanax Se nd Method: E-Prescr ibed Sub s Allowed: subs OK Medic ationGen ericName : Xanax Not Available Not Available Not Available benztropi ne 1 mg tablet TAKE 1 TABLET BY MOUTH AT BEDTIME active Not Available Not Available No t Available clotrimaz ole 1 % topical solution 06/28 completed Medicati on ID: [id number] D uration Value: 14 Prescri bed By Name: Lizbunny MeyersMISSY viramontes nd Name: roxy roca Sen d Method: E-Prescr ibed Sub s Allowed: subs OK Speci al Instruct ion: 5 drops to both ears two times a day X 14 days Med icationG enericNa me: clotrima zole Not Available Not Available Not Available metoprolo l succinate ER 25 mg tablet,ex tended release 24 hr TAKE 1 TABLET BY MOUTH EVERY DAY 06/28 completed Not Available Not Available Not Available lorazepam 1 mg tablet TAKE 1 TABLET BY MOUTH 2 TIMES A DAY, NEEDED FOR JAW MUSCLE SPASMS 06/28 completed Not Available Not Available Not Available epinephri ne 0.3 mg/0.3 mL injection , auto-inje ctor 1 pen injector 2020 active Medicati on ID: [id number] D uration Value: 1 Prescri bed By Name: Janett Bhakta nd Name: epinephr ine Send Method: E-Prescr ibed Sub s Allowed: subs OK Medic ationGen ericName : epinephr ine Not Available Not Available Not Available ibuprofen 600 mg tablet TAKE 1 TABLET BY MOUTH EVERY 6 HOURS NEEDED FOR PAIN active Not Available Not Available No t Available sertralin e 20 mg/mL oral concentra te 10/22 completed Medicati on ID: [id number] Sarwat schwartz Name: sertrali ne Send Method: E-Prescr ibed Sub s Allowed: subs OK Medic ationGen ericName : sertrali ne Not Available Not Available Not Available ondansetr on 4 mg disintegr ating tablet DISSOLVE 1 TABLET BY MOUTH UNDER TONGUE EVERY 8 HOURS NEEDED FOR NAUSEA/V OMITING. 06/28 completed Not Available Not Available Not Available cefdinir 300 mg capsule TAKE 1 CAPSULE BY MOUTH EVERY 12 HOURS FOR 10 DAYS 06/28 completed Not Available Not Available Not Available fluticaso ne propionat e 50 mcg/actua tion nasal spray,lu pension SPRAY 2 SPRAYS INTRANAS ALLY DAILY active Not Available Not Available No t Available doxycycli ne hyclate 100 mg tablet TAKE 1 TABLET BY MOUTH EVERY 12 HOURS FOR 5 DAYS 06/28 completed Not Available Not Available Not Available amoxicill in 875 mg-potass ium clavulana te 125 mg tablet TAKE 1 TABLET BY MOUTH TWICE A DAY FOR 7 DAYS 06/28 completed Not Available Not Available Not Available oxycodone 5 mg tablet TAKE 1 TABLET BY MOUTH EVERY 4 HOUR HOURS NEEDED (INS MAX 4 / DAY) 06/28 completed Not Available Not Available Not Available TobraDex 0.3 %-0.1 % eye drops,lu pension 12/04 completed Medicati on ID: [id number] P shai todd By Name: Janett Bhakta nd Name: TobraDex Send Method: E-Prescr ibed Sub s Allowed: subs OK Speci al Instruct ion: Instill 3 drops in the affect ear BID for 14 days Med icationG enericNa me: TobraDex Not Available Not Available Not Available bupropion HCl SR 200 mg tablet,12 hr sustained -release 06/28 completed Medicati on ID: [id number] B rand Name: bupropio n HCl Send Method: E-Prescr ibed Sub s Allowed: subs OK Medic ationGen ericName : bupropio n HCl Not Available Not Available Not Available aripipraz ole 5 mg tablet 06/28 completed Medicati on ID: [id number] B rand Name: aripipra zole Sen d Method: E-Prescr ibed Sub s Allowed: subs OK Medic ationGen ericName : aripipra zole Not Available Not Available Not Available GaviLyte- G 236 gram-22.7 4 gram-6.74 gram-5.86 gram oral solution TAKE DRINK 8 OZ EVERY 10-15 MINUTES UNTIL FINISHED 06/28 completed Not Available Not Available Not Available lurasidon e 80 mg tablet TAKE 1 TABLET BY MOUTH EVERY DAY WITH FOOD active Not Available Not Available No t Available Vitals Date Recorded Body height Body mass index (BMI) Body weight Provider Name and Address Organization Details Last Updated DateTime 06/28/2024 187.96 cm 26.3 kg/m2 84904.44 g Lesa Izaguirre MA - [facility] 06/28/2024 16:01:36 Social History None recorded. Functional Status None recorded. Mental Status None recorded. Family History Nothing Reported. Medical History No medical history recorded. 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 s loping to a mild slopi ng to a moderate s loping to moderately severe* sl oping to severe slo ping to profound f lat high frequency low frequency mid frequency cookie bite mora curve}} {{with sen sorineural hearing loss with* cond uctive hearing loss with mixed hearing loss with}} {{excellen t* good fa ir poor no measurable }} word recognitio n.Left ear:{{Norm al Normal through 2 kHz Mild M oderate Mo derately-s evere Cheri re Profoun d Essentia lly WNL through 6kHz#}} {{hearing hearing. s loping to a mild slopi ng to a moderate* sloping to moderately severe slo ping to severe slo ping to profound f lat high frequency low frequency mid frequency cookie bite mora curve}} {{with sen sorineural hearing loss with* cond uctive hearing loss with mixed hearing loss with}} {{excellen t* good fa ir poor no measurable }} word recognitio n. Tympanomet ry:Right Ear:{{Type A Type As Type Ad Type C Type C, shallow & rounded* T ype B Type B with large volume Cou ld not maintain a hermetic seal}}Left Ear:{{Type A Type As Type Ad Type C Type C, shallow & rounded* T ype B Type B with large volume Cou ld not maintain a hermetic seal}} Health Concerns Section Related Observation LastModified by Organization Detai ls LastModified Time None Recorded Concern Status LastModified by Organization Details LastModified Time None Recorded Advance Directives Directive None Recorded Payers Encounter Date Sequence Insurance Name Policy Number Policy Mendez Covered Member ID Mendez Member ID Guarantor Name 06/28/[address] [place] [address] [id number] 01 Bob Meza [id number] Bob Meza Notes Date Note Type Note Provider Name and Address Organization Details Recorded Time 06/28/2024 text/html 68 year old male presents reporting left ear pressure. Since early April he has been seen by urgent care four times. He was treated for left ear infection with one week course of Augmentin on 04/13/24, five day course of Prednisone 04/20/24, one week course of Doxycycline 05/12/24 and ten day course of Cefdinir 06/03/24. After the Doxycycline he felt improvement for about 1 week but otherwise did not find the antibiotics or steroids to be helpful. No otalgia or otorrhea. He uses Flonase and Zyrtec for nasal congestion. No facial pain or pressure. JUANITO DELGADO MD [address] [place] [address], [phone] - [facility] 06/28/2024 21:06:23
--- OUTSIDE RECORDS SUMMARY | 2024-07-27 10:17 | XMS_ITS | Continuity of Care Document ---
Author Organization [place] - [facility], [facility] Address [address] [place] [id number] Care Team Providers Care Ladle Repairer Name Role Phone DAO BOWEN Primary Care Provider [phone] Assessment Encounter Date Assessment Date Assessment LastModified [...] Details Recorded Time Infectiv e otitis externa 25182375 Completed 201312/11/2023 Otitis externa; infectiv e; CMS Risk: low risk CMS Treatmen t: establis hed problem (to examiner ): stable or improved Note: Date Diagnose d: 4 3:20 PM (380.10) Otitis externa; infectiv e; CMS Risk: low risk CMS Treatmen t: establis hed problem (to examiner ): stable or improved Note: Date Diagnose d: 4 3:23 PM (380.10) Not Available [facility] 4 02:14:05 Other nasal cavity and sinus disease Active 2013 Other diseases of upper respirat ory tract: Other disease of nasal cavity and sinuses; CMS Risk: low risk CMS Treatmen t: establis hed problem (to examiner ): stable or improved Note: Date Diagnose d: 4 9:45 AM (478.19) Not Available [facility] 4 02:13:41 Hypertro phy of nasal turbinat es 12443170 Active 2013 Nasal turbinat e hypertro phy; CMS Risk: low risk CMS Treatmen t: establis hed problem (to examiner ): stable or improved Note: Date Diagnose d: 4 9:45 AM (478.0) Not Available [facility] 4 02:16:18 Chronic rhinitis 60944859 Active 2020 Chronic rhinitis ; Note: Date Diagnose d: 1 1:16 PM (J31.0) Not Available [facility] 4 02:14:14 Bilatera l disorder of Eustachi an tubes 55058545143 46004 Active 2022 Other specifie d disorder s of Eustachi an tube, bilatera l; Note: Date Diagnose d: 02/19/20 23 2:06 PM (H69.83) Not Available [facility] 4 02:13:42 Obstruct alvarado sleep apnea syndrome 67788166 Active 2020 Obstruct alvarado sleep apnea (adult) (pediatr ic); Note: Date Diagnose d: 1 1:16 PM (G47.33) Not Available [facility] 4 02:15:32 Acute suppurat alvarado otitis media without spontane ous rupture of ear drum 40420913 Active 2022 Acute suppurat alvarado otitis media without spontane ous rupture of ear drum, bilatera l; Note: Date Diagnose d: 3 4:39 PM (H66.003 ) Not Available [facility] 4 02:16:18 Bilatera l external auditory canal chronic otitis externa 07410265637 Active 2020 Unspecif ied chronic otitis externa, bilatera l; Note: Date Diagnose d: 1 1:16 PM (H60.63) Not Available [facility] 4 02:14:14 Acute serous otitis media of bilatera l ears 15045755334 Active 2022 Acute serous otitis media, bilatera l; Note: Date Diagnose d: 3 2:03 PM (H65.03) Not Available [facility] 4 02:14:10 Postoper ative follow-u p visit Active 2013 Post op; CMS Risk: low risk CMS Treatmen t: establis hed problem (to examiner ): stable or improved Note: Date Diagnose d: 4 9:45 AM (V67.00) Post op; CMS Risk: low risk CMS Treatmen t: establis hed problem (to examiner ): stable or improved Note: Date Diagnose d: 5 10:16 AM (V67.00) Not Available [facility] 4 02:13:56 Allergic rhinitis 76857629 Active 2020 Other allergic rhinitis ; Note: Date Diagnose d: 1 10:31 AM (J30.89) Not Available [facility] 4 02:13:18 Deviated nasal septum 451962492 Active 2013 Deviated nasal septum; CMS Risk: low risk CMS Treatmen t: establis hed problem (to examiner ): stable or improved Note: Date Diagnose d: 4 9:45 AM (470) Not Available [facility] 4 02:12:47 Abnormal auditory percepti on 12299291 Active 2022 Other abnormal auditory percepti ons, bilatera l; Note: Date Diagnose d: 02/19/20 23 2:06 PM (H93.293 ) Not Available [facility] 4 02:15:59 Impacted cerumen of bilatera l ears 79615690261 19285 Active 2022 Impacted cerumen, bilatera l; Note: Date Diagnose d: 3 11:48 AM (H61.23) Not Available [facility] 4 02:14:05 Impacted cerumen 75370378 Completed 201412/11/2023 Impacted cerumen; CMS Risk: low [...] Start Date : 02/14/20 14 Not Available [facility] 4 02:13:35 Sensorin eural hearing loss of bilatera l ears 254215415 Active 2024 Isabelle barrios MA - [facility] 5 15:55:58 Problem Notes None recorded. Procedures Surgical History Date Name Laterality Status Provider Name and Address Organization Details Recorded Time 06/28/2024 Air & Speech Audio with Tymps (39235, 97137 & 79876) completed Isabelle Babb MA - [facility] 06/28/2024 15:55:53 Imaging Results None recorded. Procedure Notes None recorded. Medical Equipment None Reported. Allergies No known drug allergies Medications Name Sig Start Date Stop Date Status Note LastModified by Organization Details LastModified Time Prescript ion - New 06/28 completed Rx^Rx_20 [id number] Not Available Not Available Not Available doxycycli [...] topical solution 06/28 completed Medicati on ID: [id number] D uration Value: 14 Prescri bed By Name: MISSY [place] nd Name: roxy roca Eligio d Method: E-Prescr ibed Sub s Allowed: subs OK Speci al Instruct ion: 5 drops to both ears two times a day X 14 days Med icationG enericNa me: celenarilaurie zolsegun Not Available Not Available Not Available metoprolo [...] pen injector 2020 active Medicati on ID: [id number] D uration Value: 1 Prescri bed By [...] 10/22 completed Medicati on ID: [id number] Sarwat nd Name: sertrali ne Send Method: E-Prescr ibed [...] Not Available TobraDex 0.3 %-0.1 % eye drops,[facility] pension 12/04 completed Medicati on ID: [id number] P shai d By Name: Janett Bhakta nd Name: TobraDex Send Method: E-Prescr ibed Sub s Allowed: subs OK Speci al Instruct ion: Instill 3 drops in the affect ear BID for 14 days Med icationG enericNa me: TobraDex Not Available Not Available Not Available bupropion HCl SR 200 mg tablet,12 hr sustained -release 06/28 completed Medicati on ID: [id number] B rand Name: bupropio n HCl Send Method: E-Prescr ibed Sub s Allowed: subs OK Medic ationGen ericName : bupropio n HCl Not Available Not Available Not Available aripipraz ole 5 mg tablet 06/28 completed Medicati on ID: [id number] B rand Name: aripipra zole Sen d [...] Updated DateTime 06/28/2024 187.96 cm 26.3 kg/m2 44667.44 g Lesa Izaguirre MA - [facility] 06/28/2024 16:01:36 Social History None recorded. Functional Status None recorded. Mental Status None recorded. Family History Nothing Reported. Medical History No medical history recorded. Past Encounters Encounter ID Performer Location Encounter Start Date Encounter Closed Date Diagnosis/Indication Diagnosis SNOMED-CT Code Diagnosis ICD10 Code Diagnosis Note [id number] JUANITO DELGADO MD [facility] [address] [phone] 06/28/2024 15:20:42 06/28/2024 16:12:58 Sensorineural hearing loss of bilateral ears 171769009 H90.3 Audiologic al evaluation results:Ri ght ear:{{Norm al Normal through 2 kHz Mild M oderate Mo derately-s evere Cheri re Profoun d Essentia lly mild through 6kHz#}} {{hearing hearing. s loping to a mild slopi ng to a moderate s loping to moderately severe* sl oping to severe slo ping to profound f lat high frequency low frequency mid frequency cookie bite moar curve}} {{with sen sorineural hearing loss with* [...] by Organization Details LastModified Time None Recorded Payers Encounter Date Sequence Insurance Name Policy Number Policy Mendez Covered Member ID Mendez Member ID Guarantor Name 06/28/[address] [place] [address] [id number] 01 Bob Herber Craven Derrick [id number] Bob Meza Notes Date Note Type Note [...] facial pain or pressure. JUANITO DELGADO MD [address] [place] [address], [phone], [place] - [facility] 06/28/2024 21:06:23
== END 2024-07-27 10:09 | disposition home or self-care (01) ==
LOC: HO.HSMS 09:17
PROVIDERS: PCP Internal Medicine; Visit Provider Psychiatry & Neurology Neurology
DX: G24.4 Idiopathic orofacial dystonia (principal)
CPT/HCPCS: 99204; G2211

== ENCOUNTER → 2024-07-27 09:16 | Outpatient (BNVA) | payer MEDICARE, SELFPAY | PROVIDERS: PCP Internal Medicine; Visit Provider Psychiatry & Neurology Neurology | DX: G24.4 Idiopathic orofacial dystonia (principal) | CPT/HCPCS: 99202 ==